=== PATIENT | male | born 2000 | race Caucasian/White ===

== ENCOUNTER 2020-09-22 13:02 | Emergency (ER) | payer OTHER ==
[2020-09-22 13:59] LABS: EOSINOPHIL 10.1 % (0-5); HCT 47.1 % (42.0-52.0); HGB 16.4 g/dl (13.2-18.0); LYMPHOCYTE 32.3 % (15-48); MCH 31.4 pg (25.0-31.0); MCHC 34.8 g/dL (32.0-36.0); MCV 90.2 fL (78.0-100.0); MONOCYTE 8.2 % (0-12); MPV 10.3 fL (6.0-9.5); NEUTROPHIL 48.2 % (41-80); NRBC 0; PLT 207 K/uL (150-400); RBC 5.22 M/uL (4.70-6.00); RDW 11.7 % (11.5-14.0); WBC 5.8 K/uL (4.0-10.5)
[2020-09-22 14:17] LABS: ALBUMIN 4.2 g/dL (3.4-5.0); BILIRUBIN - TOTAL 0.9 mg/dL (0.2-1.0); GLOBULIN (CALCULATION) 3.4 g/dL; POTASSIUM 4.2 mmol/L (3.5-5.1); TOTAL PROTEIN 7.6 g/dL (6.4-8.2)
== END 2020-09-22 14:58 | disposition home or self-care (01) ==
LOC: FER 13:02
PROVIDERS: Emergency Medicine
DX: R07.89 Other chest pain (principal); R03.0 Elevated blood-pressure reading, without diagnosis of hypertension
CPT/HCPCS: 36415; 71045; 80053; 84484; 85025; 93005

== ENCOUNTER 2021-07-30 18:33 | Emergency (ER) | payer OTHER ==
[2021-07-30] MEDS ORDERED: MOTRIN600 MG PO (22:23)
== END 2021-07-30 23:00 | disposition home or self-care (01) ==
LOC: FER 18:33
DX: S52.571A Other intraarticular fracture of lower end of right radius, initial encounter for closed fracture (principal); V47.5XXA Car driver injured in collision with fixed or stationary object in traffic accident, initial encounter; Y92.89 Other specified places as the place of occurrence of the external cause
CPT/HCPCS: 73110